=== PATIENT | female | born 1985 | race Caucasian/White ===

== ENCOUNTER 2018-05-13 17:09 | Observation (INO) | payer MEDICAID ==
[~2018-05-13] VITALS: Ht 172.7 cm; Wt 104.3 kg
[2018-05-13] MEDS ORDERED: PNV1TABL59 PO (18:43)
== END 2018-05-13 18:50 | disposition home or self-care (01) ==
LOC: L&D 17:09
PROVIDERS: ADMIT Obstetrics & Gynecology; ATTEND Obstetrics & Gynecology
DX: O36.8130 Decreased fetal movements, third trimester, not applicable or unspecified (principal); O48.0 Post-term pregnancy; Z3A.40 40 weeks gestation of pregnancy
CPT/HCPCS: 76815; 76818; 99281; G0378